=== PATIENT | female | born 1995 | race African-American/Black ===

== ENCOUNTER 2021-05-01 15:30 | Emergency (ER) | payer OTHER, SELFPAY ==
[2021-05-01 15:35] VITALS: BP 178/112; PULSE 89; RESP 14; O2SAT 100
[2021-05-01] MEDS: KETOROLAC 30 MG/ML VIAL (*BKC) IV PUSH (16:23)
[2021-05-01] MEDS: SODIUM CHLORIDE 0.9% IV 1,000 ML 999 ML IV CONT (16:23)
[2021-05-01 16:55] LABS: Basophils Percent Auto 0.4 % (0.2-1.2); Eosinophils Percent Auto 0.3 % (0-4.4); Hemoglobin 11.1 g/dL (12.0-15.0); Immature Granulocyte Absolute 0.03 K/mm3 (0.00-0.031); Immature Granulocyte Percent A 0.4 % (0-0.5); Lymphocytes Absolute Auto 2.65 K/mm3 (0.9-3.2); Lymphocytes Percent Auto 35.2 % (18.3-44.2); Mean Corpuscular HGB Conc 30.8 g/dl (32-36); Mean Corpuscular Hemoglobin 22.2 pg (26-34); Mean Corpuscular Volume 71.9 fl (80-100); Mean Platelet Volume 9.1 fl (7.4-10.4); Monocytes Absolute Auto 0.5 K/mm3 (0.1-0.6); Monocytes Percent Auto 6.6 % (2.6-8.5); Neutrophils Absolute Auto 4.3 K/mm3 (1.3-6.7); Neutrophils Percent Auto 57.1 % (45.5-73.1); Platelet Count Result 294 k/mm3 (150-375); Red Blood Count 5.01 M/mm3 (4.2-5.4); Red Cell Distribution Width 15.9 % (11.5-14.5); White Blood Count 7.5 K/mm3 (4.5-10.0)
[2021-05-01 17:06] LABS: Anion Gap 9 mmol/L (8-16); Blood Urea Nitrogen 9 mg/dL (7-17); Calcium 9.1 mg/dL (8.4-10.2); Carbon Dioxide 24 mmol/L (22-30); Chloride 106 mmol/L (98-107); Estimated CRCL calculation 108 ml/min; Estimated Glomerular Filt Rate > 60; Glucose 83 mg/dL (65-105); Potassium 3.5 mmol/L (3.4-5.0); Sodium 139 mmol/L (137-145)
[2021-05-01 17:19] VITALS: BP 154/92; PULSE 79; RESP 18; O2SAT 99
--- NOTE | 2021-05-01 17:34 | ED.GENADULT ---
HPI - General Adult General Chief complaint: Recheck/Abnormal Lab/Rx Stated complaint: headache, HTN Time Seen by Provider: 05/01/21 15:46 History of Present Illness HPI narrative: Patient is a 25-year-old female who presents ER with elevated blood pressures. Patient was at work and was having a headache and decided to check her blood pressure and blood pressure reading was too high on the machine at work and so she had the pharmacist take her blood pressure which was also reading quite high. Her mother recommend she come to the ER to be evaluated. Patient is having no chest pain or shortness of breath. Denies history of hypertension. She reports she has weekly headaches and right now she is having bitemporal headache that is throbbing. She has not taken any pain medication. Related Data Allergies Allergy/AdvReac Type Severity Reaction Status Date / Time No Known Allergies Allergy Unverified 05/01/21 15:48 Review of Systems Review of Systems: All systems reviewed & are unremarkable except as noted in HPI and below Constitutional: Constitutional: Denies chills, Denies fever(s) and Denies weakness ENT: Denies nasal congestion and Denies sore throat Gastrointestinal: Gastrointestinal: Denies nausea and Denies vomiting Neurologic: Denies syncope, Reports headache(s), Denies focal weakness and Denies numbness PMFSH Past Medical History Medical History (Updated 05/01/21 @ 17:41 by Adonay Nolasco MD) Healthy female adult Surgical History Surgical History (Updated 05/01/21 @ 17:38 by Adonay Nolasco MD) No history of previous surgery Social History Social History (Updated 05/01/21 @ 17:38 by Adonay Nolasco MD) Smoking status: Never smoker Exam Narrative: Exam Narrative: GENERAL: Well-appearing, well-nourished, and in no acute distress. HEAD: Normocephalic, atraumatic. ENT: Mucous membranes moist. CHEST: Clear to auscultation. No respiratory distress. HEART: Regular rate and rhythm. Normal peripheral pulses. ABDOMEN: Soft, nontender, nondistended. EXTREMITIES: Normal range of motion. No edema. SKIN: Warm, dry, no rash. NEURO: Alert and oriented x3. Course Course Emergency Course: Blood pressure originally in the 170s. It has come down to 156/80 mmHg. Patient still with mild headache after Toradol. Recommend follow-up and establishing care with primary care physician. Encouraged her to take her blood pressure regularly so that her doctor may better determine what medication she requires. Vital Signs Vital signs: Vital Signs Pulse Rate 89 05/01/21 15:35 Respiratory Rate 14 05/01/21 15:35 Blood Pressure 178/112 H 05/01/21 15:35 Pulse Oximetry 100 05/01/21 15:35 Pulse Rate 79 05/01/21 17:19 Respiratory Rate 18 05/01/21 17:19 Blood Pressure 154/92 H 05/01/21 17:19 Pulse Oximetry 99 05/01/21 17:19 Medical Decision Making Vital Signs Vital Signs: Vital Signs Pulse Rate 89 05/01/21 15:35 Respiratory Rate 14 05/01/21 15:35 Blood Pressure 178/112 H 05/01/21 15:35 Pulse Oximetry 100 05/01/21 15:35 Pulse Rate 79 05/01/21 17:19 Respiratory Rate 18 05/01/21 17:19 Blood Pressure 154/92 H 05/01/21 17:19 Pulse Oximetry 99 05/01/21 17:19 Lab Data Result diagrams: 05/01/21 16:45 05/01/21 16:45 Labs: Lab Results 05/01/21 05/01/21 Range/Units 16:45 16:45 WBC 7.5 (4.5-10.0) K/mm3 RBC 5.01 (4.2-5.4) M/mm3 Hgb 11.1 L (12.0-15.0) g/dL Hct 36.0 L (37.0-47.0) % MCV 71.9 L (80-100) fl MCH 22.2 L (26-34) pg MCHC 30.8 L (32-36) g/dl RDW 15.9 H (11.5-14.5) % Plt Count 294 (150-375) k/mm3 MPV 9.1 (7.4-10.4) fl Immature Gran % (Auto) 0.4 (0-0.5) % Neut % (Auto) 57.1 (45.5-73.1) % Lymph % (Auto) 35.2 (18.3-44.2) % Gonzales % (Auto) 6.6 (2.6-8.5) % Eos % (Auto) 0.3 (0-4.4) % Baso % (Auto) 0.4 (0.2-1.2) % Lymph # (Auto) 2.65 (0.9-3.2) K/mm3 Mo
[2021-05-01 18:33] VITALS: BP 139/91; PULSE 68; RESP 18; O2SAT 99
== END 2021-05-01 18:34 | disposition home or self-care (01) ==
PROVIDERS: Emergency Provider Emergency Medicine
DX: R51.9 Headache, unspecified (principal); R03.0 Elevated blood-pressure reading, without diagnosis of hypertension
CPT/HCPCS: 36415; 80048; 85025; 96361; 96374; 99284; J1885; J7030

== ENCOUNTER 2021-12-02 16:07 | Emergency (ER) | payer OTHER, SELFPAY ==
--- NOTE | ~2021-12-02 | US_ITS ---
EXAMINATION: US venous doppler LE RT EXAM DATE: 12/02/2021 18:16 INDICATION: Right leg pain and swelling. TECHNIQUE: Multiple grayscale, color flow and Doppler images of the right lower extremity deep venous system were obtained and reviewed. There is no prior study for comparison. FINDINGS: The right common femoral, femoral and profunda veins demonstrate normal color flow, respira tory variation, augmentation and compressibility. Compressibility, color flow confirmed within the r ight popliteal, posterior tibial, peroneal, and greater saphenous veins. IMPRESSION: 1. No right lower extremity deep venous thrombosis. Reviewed, dictated and finalized at location G. ING MACHINE OPERATOR
[2021-12-02 16:08] VITALS: BP 146/88; PULSE 81; RESP 16; TEMP 36.4; O2SAT 100
[2021-12-02 16:45] VITALS: BP 140/70; PULSE 80; RESP 18; O2SAT 99
--- NOTE | 2021-12-02 17:00 | ED.EXTPRO ---
HPI - Extremity Problem General Chief complaint: Extremity Problem,Nontraumatic <Alison Magdaleno PA-C - Last Filed: 12/02/21 18:54> Stated complaint: R LEG DISCOLORATION <Alison Magdaleno PA-C - Last Filed: 12/02/21 18:54> Time Seen by Provider: 12/02/21 16:51 <Alison Magdaleno PA-C - Last Filed: 12/02/21 18:54> Source: patient <Alison Magdaleno PA-C - Last Filed: 12/02/21 18:54> Mode of arrival: ambulatory <Alison Magdaleno PA-C - Last Filed: 12/02/21 18:54> Limitations: no limitations <Alison Magdaleno PA-C - Last Filed: 12/02/21 18:54> History of Present Illness HPI Narrative: This is a 26 year old female that presents to the ER for right calf pain present over the last couple of weeks. Reports recent travel and family history of blood clots which concerned her and prompted her to be seen. Also reports she noticed a bruise to the right calf. No known injuries or trauma. Denies fever, lower extremity edema or erythema. <Alison Magdaleno PA-C - Last Filed: 12/02/21 18:54> Related Data Allergies/Adverse reactions: Allergies Allergy/AdvReac Type Severity Reaction Status Date / Time No Known Allergies Allergy Unverified 05/01/21 15:48 <Alison Magdaleno PA-C - Last Filed: 12/02/21 18:54> Review of Systems Review of Systems: CONSTITUTIONAL: Denies fever CARDIOVASCULAR: Denies edema. SKIN: Denies rash MUSCULOSKELETAL: Reports myalgia. NEUROLOGIC: Denies numbness <Alison Magdaleno PA-C - Last Filed: 12/02/21 18:54> All systems reviewed & are unremarkable except as noted in HPI and below <Alison Magdaleno PA-C - Last Filed: 12/02/21 18:54> PMFSH Past Medical History Medical History: Medical History (Updated 12/02/21 @ 18:53 by Alison Magdaleno PA-C) Healthy female adult <PATTIE Sherman Last Filed: 12/02/21 18:54> Surgical History Surgical History: Surgical History (Updated 05/01/21 @ 17:38 by Adonay Nolasco MD) No history of previous surgery <Alison Magdaleno PA-C - Last Filed: 12/02/21 18:54> Social History Social History: Social History (Updated 05/01/21 @ 17:38 by Adonay Nolasco MD) Smoking status: Never smoker <Alison Magdaleno PA-C - Last Filed: 12/02/21 18:54> Exam Narrative: GENERAL: Well-appearing, well-nourished, and in no acute distress. HEAD: Normocephalic, atraumatic. EYES: EOMI. CHEST: Clear to auscultation. No respiratory distress. No wheezes rales or rhonchi HEART: Regular rate and rhythm. No murmur heard. Normal peripheral pulses. EXTREMITIES: Normal range of motion. No edema, erythema or warmth. Normal DP pulses. Normal sensation SKIN: Warm, dry, no rash. NEURO: No focal deficits. Alert and oriented x3. PSYCH: Normal mood and affect <Alison Magdaleno PA-C - Last Filed: 12/02/21 18:54> Course Vital Signs Vital signs: Vital Signs Temperature 36.4 C L 12/02/21 16:08 Pulse Rate 81 12/02/21 16:08 Respiratory Rate 16 12/02/21 16:08 Blood Pressure 146/88 H 12/02/21 16:08 Pulse Oximetry 100 12/02/21 16:08 Temperature 36.4 C L 12/02/21 16:08 Pulse Rate 80 12/02/21 16:45 Respiratory Rate 18 12/02/21 16:45 Blood Pressure 140/70 12/02/21 16:45 Pulse Oximetry 99 12/02/21 16:45 <Alison Magdaleno PA-C - Last Filed: 12/02/21 18:54> MDM - Extremity (Nontraumatic) MDM Narrative Medical decision making narrative: Patient presents to the emergency department for right calf pain present over the last couple weeks with recent travel. Concern for a blood clot in the leg. She is afebrile and nontoxic-appearing. Oxygen saturation is normal on room air. She is not tachycardic. No overt erythema or edema on exam. She is neurovascularly intact. CBC is without leukocytosis. Does show microcytic anemia with hemoglobin of 11.1 which appears to be around her baseline. Metabolic panel without concerning findings. Right lower extremity venous Doppler without evidence of D
[2021-12-02 17:47] LABS: Basophils Percent Auto 0.4 % (0.2-1.2); Eosinophils Percent Auto 0.1 % (0-4.4); Hematocrit 35.6 % (37.0-47.0); Hemoglobin 11.1 g/dL (12.0-15.0); Immature Granulocyte Absolute 0.02 K/mm3 (0.00-0.031); Immature Granulocyte Percent A 0.3 % (0-0.5); Lymphocytes Percent Auto 34.3 % (18.3-44.2); Mean Corpuscular HGB Conc 31.2 g/dl (32-36); Mean Corpuscular Hemoglobin 23.2 pg (26-34); Mean Corpuscular Volume 74.5 fl (80-100); Mean Platelet Volume 9.1 fl (7.4-10.4); Monocytes Absolute Auto 0.6 K/mm3 (0.1-0.6); Monocytes Percent Auto 7.8 % (2.6-8.5); Neutrophils Absolute Auto 4.5 K/mm3 (1.3-6.7); Neutrophils Percent Auto 57.1 % (45.5-73.1); Platelet Count Result 287 k/mm3 (150-375); Red Blood Count 4.78 M/mm3 (4.2-5.4); Red Cell Distribution Width 15.5 % (11.5-14.5); White Blood Count 7.9 K/mm3 (4.5-10.0)
[2021-12-02 17:57] LABS: Prothrombin Time 12.8 Seconds (11.1-14.7)
[2021-12-02 17:58] LABS: Partial Thromboplastin Time 34.8 SECONDS (22.3-36.8)
[2021-12-02 17:59] LABS: Anion Gap 9 mmol/L (8-16); Blood Urea Nitrogen 11 mg/dL (7-17); Calcium 9.1 mg/dL (8.4-10.2); Carbon Dioxide 22 mmol/L (22-30); Chloride 106 mmol/L (98-107); Estimated CRCL calculation 110 ml/min; Estimated Glomerular Filt Rate > 60; Glucose 99 mg/dL (65-110); Potassium 3.9 mmol/L (3.4-5.0); Sodium 137 mmol/L (137-145)
== END 2021-12-02 19:07 | disposition home or self-care (01) ==
PROVIDERS: Physician Assistant; Emergency Provider Emergency Medicine
DX: M79.661 Pain in right lower leg (principal)
CPT/HCPCS: 36415; 80048; 85025; 85610; 85730; 93971; 99284

== ENCOUNTER 2024-02-22 12:18 | Emergency (ER) | payer OTHER, SELFPAY ==
[2024-02-22] VITALS (7 sets, daily range): BP systolic 157–183; BP diastolic 99–118; PULSE 69–98; RESP 12–25; TEMP 37.5; O2SAT 99–100
--- NOTE | ~2024-02-22 | XR_ITS ---
EXAMINATION: XR chest 2V DATE: 02/22/2024 13:20 INDICATION: Chest pain and hypertension TECHNIQUE: PA and lateral views of the chest were obtained. COMPARISON: None FINDINGS: The lungs are clear with no focal airspace opacities, pulmonary edema, pleural effusion or pneumothor ax. The cardiomediastinal silhouette is normal. Visualized bones and soft tissues are unremarkable. IMPRESSION: 1. No acute cardiopulmonary disease. Reviewed, dictated and finalized at location A.
--- NOTE | 2024-02-22 12:23 | ECG_ITS ---
SEE SCANNED COPY FOR CONFIRMED REPORT MTDD
[2024-02-22 13:16] LABS: Basophils Percent Auto 0.4 % (0.2-1.2); Eosinophils Percent Auto 0.2 % (0-4.4); Hematocrit 41.8 % (37.0-47.0); Hemoglobin 12.8 g/dL (12.0-15.0); Immature Granulocyte Absolute 0.02 K/mm3 (0.00-0.031); Immature Granulocyte Percent A 0.4 % (0-0.5); Immature Platelet Fraction Pct 4.4 % (0.9-11.2); Lymphocytes Absolute Auto 1.13 K/mm3 (0.9-3.2); Lymphocytes Percent Auto 21.9 % (18.3-44.2); Mean Corpuscular HGB Conc 30.6 g/dl (32-36); Mean Platelet Volume 9.8 fl (7.4-10.4); Monocytes Absolute Auto 0.4 K/mm3 (0.1-0.6); Monocytes Percent Auto 7.2 % (2.6-8.5); Neutrophils Absolute Auto 3.6 K/mm3 (1.3-6.7); Neutrophils Percent Auto 69.9 % (45.5-73.1); Platelet Count Result 211 k/mm3 (150-375); Red Blood Count 5.57 M/mm3 (4.2-5.4); Red Cell Distribution Width 15.3 % (11.5-14.5); White Blood Count 5.2 K/mm3 (4.5-10.0)
[2024-02-22 13:32] LABS: Alanine Aminotransferase 21 U/L (6-35); Albumin Level 4.8 g/dL (3.5-5.1); Alkaline Phosphatase 96 U/L (38-126); Anion Gap 13 mmol/L (4-12); Aspartate Amino Transferase 36 U/L (14-36); Bilirubin,Total 0.4 mg/dL (0.2-1.3); Blood Urea Nitrogen 9 mg/dL (7-17); Calcium 9.3 mg/dL (8.4-10.2); Carbon Dioxide 16 mmol/L (22-30); Chloride 107 mmol/L (98-107); Estimated CRCL calculation 89 ml/min; Estimated Glomerular Filt Rate > 60; Glucose 89 mg/dL (65-110); Lipase 69 U/L (23-300); Sodium 136 mmol/L (137-145)
[2024-02-22 13:43] LABS: Troponin I < 0.012 ng/mL (0.000-0.034)
[2024-02-22 13:44] LABS: Platelet Estimate Adequate (Adequate); Poikilocytosis 1+
[2024-02-22 13:45] LABS: Ovalocytes 1+; Schistocytes Rare
--- NOTE | 2024-02-22 13:45 | ED.GENADULT ---
HPI - General Adult General Chief complaint: Recheck/Abnormal Lab/Rx <Arianne Trinh March, IT SOLUTIONS ARCHITECT - Last Filed: 02/22/24 19:13> Stated complaint: high BP <Arianne Trinh March, IT SOLUTIONS ARCHITECT - Last Filed: 02/22/24 19:13> Time Seen by Provider: 02/22/24 13:45 <Arianne Trinh March, IT SOLUTIONS ARCHITECT - Last Filed: 02/22/24 19:13> Focused HPI: Em Alcala is a 28 y/o female who presents today with complaints of elevated b/p . She states that she has been on Amlodipine 5 mg for about 2-3 years and she ran out of her medication about 3 days ago and she noticed that her b/p was elevated and she started to get chest pain / nauseated with vomiting X 1. She state she is still having some uncomfortable feeling in her chest. GENERAL: Well-appearing, well-nourished, and in no acute distress. HEAD: Normocephalic, atraumatic. CHEST: Clear to auscultation. ?No respiratory distress. HEART: Regular rate and rhythm.? NEURO: ?Alert and oriented x3. Patient screened in triage and initial orders placed.? ?Additional care and disposition to be based upon?diagnostic testing and treatment. <Arianne Trinh March, IT SOLUTIONS ARCHITECT - Last Filed: 02/22/24 19:13> History of Present Illness HPI narrative: HPI as above, pt currently pain free on my evaluation. <Socorro Rodrigues III DO - Last Filed: 02/22/24 16:41> Related Data Allergies/adverse reactions: Allergies Allergy/AdvReac Type Severity Reaction Status Date / Time No Known Allergies Allergy Unverified 05/01/21 15:48 <Arianne Trinh March, IT SOLUTIONS ARCHITECT - Last Filed: 02/22/24 19:13> Review of Systems Review of Systems: All systems reviewed & are unremarkable except as noted in HPI and below <Socorro Rodrigues III DO - Last Filed: 02/22/24 16:41> PMFSH Past Medical History Medical History: Medical History (Updated 02/22/24 @ 15:39 by Socorro Rodrigues III, DO) Healthy female adult <Arianne Sarabia, IT SOLUTIONS ARCHITECT - Last Filed: 02/22/24 19:13> Surgical History Surgical History: Surgical History (Updated 05/01/21 @ 17:38 by Adonay Nolasco MD) No history of previous surgery <Arianne Sarabia, IT SOLUTIONS ARCHITECT - Last Filed: 02/22/24 19:13> Social History Social History: Social History (Updated 05/01/21 @ 17:38 by Adonay Nolasco MD) Smoking status: Never smoker <Arianne Sarabia, IT SOLUTIONS ARCHITECT - Last Filed: 02/22/24 19:13> Exam Const: General: healthy appearing <Socorro Kain Rodrigues III, DO - Last Filed: 02/22/24 16:41> Nutritional Appearance: well nourished <Socorro Kain Rodrigues III, DO - Last Filed: 02/22/24 16:41> Orientation/consciousness: patient oriented x3 <Socorro Kain Rodrigues III, DO - Last Filed: 02/22/24 16:41> Limitations: no limitations <Socorro Kain Rodrigues III, DO - Last Filed: 02/22/24 16:41> Chest: Chest palpation & inspection: normal inspection of the chest <Socorro Kain Rodrigues III, DO - Last Filed: 02/22/24 16:41> Resp: Effort & Inspection: normal respiratory effort <Socorro Kain Rodrigues III, DO - Last Filed: 02/22/24 16:41> Auscultation: clear to auscultation bilaterally <Socorro Kain Rodrigues III, DO - Last Filed: 02/22/24 16:41> Cardio: Rate: regular rate <Socorro Kain Rodrigues III, DO - Last Filed: 02/22/24 16:41> Rhythm: regular rhythm <Socorro Kain Rodrigues III, DO - Last Filed: 02/22/24 16:41> GI: GI Palp: Yes Soft to palpation <Socorro Kain Rodrigues III, DO - Last Filed: 02/22/24 16:41> Auscultation: normal bowel sounds <Socorro Kain Rodrigues III, DO - Last Filed: 02/22/24 16:41> Skin: General skin exam: normal color <Socorro Kain Rodrigues III, DO - Last Filed: 02/22/24 16:41> Wounds: no wounds <Socorro Kain Rodrigues III, DO - Last Filed: 02/22/24 16:41> Neuro: General: patient oriented x3, moves all extremities, no meningeal signs, no focal motor deficits and CN's II-XI intact bilaterally <Socorro Kain Rodrigues III, DO - Last Filed: 02/22/24 16:41> Speech: normal speech <Socorro Kain Rodrigues III, DO - Last Filed: 02/22/24 16:41> Extrem: General: normal to inspection and no clubbing, cyanosis or edema <Socorro Kain Rodrigues III, DO - L
[2024-02-22] MEDS: ASPIRIN 81 MG CHEWABLE TABLET 324 MG PO (14:10)
[2024-02-22] MEDS: ONDANSETRON HCL ODT 4 MG TABLET PO (14:10)
[2024-02-22] MEDS: ACETAMINOPHEN 500 MG TABLET 1000 MG PO (14:11)
[2024-02-22] MEDS: amLODIPine BESYLATE 5 MG TABLET 10 MG PO (16:19)
== END 2024-02-22 16:40 | disposition home or self-care (01) ==
PROVIDERS: Emergency Provider Emergency Medicine
DX: R07.9 Chest pain, unspecified (principal); I10 Essential (primary) hypertension; T46.5X6A Underdosing of other antihypertensive drugs, initial encounter; Z91.128 Patient's intentional underdosing of medication regimen for other reason
CPT/HCPCS: 36415; 71046; 80053; 83690; 84484; 85025; 85055; 93005; 99284; A9270